=== PATIENT | male | born 1975 | race Caucasian/White ===

== ENCOUNTER 2021-08-06 11:09 | Emergency (ER) | payer OTHER ==
[2021-08-06] MEDS ORDERED: ARTIFICIAL TEAR15 M6 OS (12:12)
[2021-08-06] MEDS ORDERED: PREDNISONE 20MG20 MG PO (12:12)
[2021-08-06] MEDS ORDERED: ACYCLOVIR200 MG PO (12:12)
== END 2021-08-06 12:37 | disposition home or self-care (01) ==
LOC: FER 11:09
DX: G51.0 Bell's palsy (principal); F17.210 Nicotine dependence, cigarettes, uncomplicated; Z28.310 Unvaccinated for COVID-19
CPT/HCPCS: 99283